=== PATIENT | female | born 1970 | race African-American/Black ===

== ENCOUNTER 2020-03-06 12:49 | Day surgery (SDC) | payer BC ==
[2020-03-01 17:57] VITALS: BMI 42.0
[2020-03-06] MEDS ORDERED: ONDANSETRON 4 MG/2 ML VIAL IVPUSH PRN (15:25)
[2020-03-06] MEDS ORDERED: ACETAMINOPHEN 325 MG TABLET (FP) PO PRN (15:25)
[2020-03-06] MEDS ORDERED: MIDAZOLAM HCL 2 MG/2 ML SINGLE DOSE VIAL ONE (15:27)
[2020-03-06] MEDS ORDERED: ceFAZolin SODIUM 1 GM VIAL ONE (15:35)
[2020-03-06] MEDS ORDERED: methylPREDNISolone ACET (DEPO) 40 MG/1 ML VIAL ONE (15:36)
[2020-03-06] MEDS ORDERED: BUPIVACAINE HCL/PF 0.5% (5MG/ML) 10 ML VIAL ONE (15:36)
[2020-03-06] MEDS ORDERED: BUPIVACAINE HCL/PF 0.5% (5MG/ML) 10 ML VIAL IJ ONE (15:55)
[2020-03-06] MEDS ORDERED: methylPREDNISolone ACET (DEPO) 40 MG/1 ML VIAL IM ONE (15:55)
[2020-03-06 16:30] VITALS: PULSE 86
[2020-03-06 16:39] VITALS: TEMP 98.1
[2020-03-06 17:28] VITALS: BP 131/69
--- NOTE | 2020-03-07 11:21 | OP ---
DATE OF OPERATION: 03/06/2020 PREOPERATIVE DIAGNOSIS: Lumbar spinal instability with lumbar facet arthropathy L4-L5. PROCEDURE PERFORMED: Lumbar facet injections left L4-L5 level under fluoroscopic guidance and right lumbar spinal facet block L4-L5 under fluoroscopic guidance. SURGEON: Papi Martinez MD CORPORATE PILOT: None. ANESTHESIOLOGIST: Huong Hastings, REF-DO ANESTHESIA: Monitored anesthesia care. PROCEDURE: The procedure consisted of the patient being brought in the operating room and gently transferred from the stretcher to the OR table with all bony prominences well padded. Lumbar spine was prepared and draped in a sterile fashion. Patient was given intravenous antibiotics and copious irrigation throughout the procedure to minimize risk of infection. A complete risk, benefit, alternative discussion was conducted with the patient which was inclusive of but not limited to infection, bleeding, , paralysis, increased pain, need for repeat surgery. Patient asked questions, understood the procedure and desired to proceed with surgical treatment. Following sterile preparation and draping of the lumbar spine, the fluoroscope was used to identify the left L4-L5 facet and a 22-gauge spinal needle was introduced into the left L4-L5 facet. A solution of Depo-Medrol 40 mg/mL and 4 mL of Marcaine was instilled into the lumbar facet and the immediate subjacent area to the lumbar facet at L4-L5. The needle was withdrawn. Attention was turned to the right L4-L5 facet. Fluoroscopic guidance was used to introduce the 22- gauge spinal needle into the right L4-L5 facet and a solution of Depo-Medrol 40 mg/mL 1 mL and 4 mL of Marcaine was instilled into the facet on the right side. [place] were withdrawn. Sterile dressings were applied. The patient was then gently awoken from anesthesia without incident and transferred from the operating room to the recovery room in satisfactory condition. There were no intraoperative complications. Deonte [id number]
== END 2020-03-06 17:15 | disposition home or self-care (01) ==
LOC: FASU 12:49
PROVIDERS: ATTEND Orthopaedic Surgery
PROC: 3E0T3BZ Introduction of Anesthetic Agent into Peripheral Nerves and Plexi, Percutaneous Approach (ICD-10-PCS; 2020-03-06)
PROC: BR16YZZ Fluoroscopy of Lumbar Facet Joint(s) using Other Contrast (ICD-10-PCS; 2020-03-06)
PROC: 3E0T33Z Introduction of Anti-inflammatory into Peripheral Nerves and Plexi, Percutaneous Approach (ICD-10-PCS; principal; 2020-03-06 15:48)
DX: M53.2X6 Spinal instabilities, lumbar region (principal); M12.88 Other specific arthropathies, not elsewhere classified, other specified site
CPT/HCPCS: 72100-TC-FY; 82962; 94760